=== PATIENT | female | born 1970 | race Caucasian/White ===

== ENCOUNTER → 2016-08-15 | Outpatient (CLI) | payer BC ==
--- NOTE | 2016-08-24 10:49 | MM ---
Reason for exam: screening (asymptomatic). Last mammogram was performed 2 years ago. Physical Findings: A clinical breast exam by your physician is recommended on an annual basis and results should be correlated with mammographic findings. MG Screening Mammo w CAD Bilateral CC and MLO view(s) were taken. Prior study comparison: August 18, 2014, mammogram, performed at [facility]. March 26, 2013, mammogram, performed at [facility]. The breast tissue is heterogeneously dense. This may lower the sensitivity of mammography. There is no discrete abnormality. No significant changes when compared with prior studies. ASSESSMENT: Negative, BI-RAD 1 RECOMMENDATION: Routine screening mammogram of both breasts in 1 year.
== END | disposition home or self-care (01) ==
LOC: RADMAMWWP 16:57
PROVIDERS: ATTEND Family Medicine
DX: Z12.31 Encounter for screening mammogram for malignant neoplasm of breast (principal)

== ENCOUNTER → 2018-08-15 | Outpatient (CLI) | payer BC ==
--- NOTE | 2018-08-16 10:01 | MM ---
Reason for exam: screening (asymptomatic). Last mammogram was performed 2 years ago. Physical Findings: A clinical breast exam by your physician is recommended on an annual basis and results should be correlated with mammographic findings. MG Screening Mammo w CAD Bilateral CC and MLO view(s) were taken. Prior study comparison: August 15, 2016, bilateral MG screening mammo w CAD. August 18, 2014, mammogram, performed at [facility]. The breast tissue is extremely dense which could obscure a lesion on mammography. Finding: There is a new 6 mm indistinct mass located 2 cm from the nipple. New finding since August 15, 2016 and August 18, 2014. ASSESSMENT: Incomplete: need additional imaging evaluation, BI-RAD 0 RECOMMENDATION: Special view mammogram of the left breast. If lesion persists on supplemental views, image directed ultrasound is recommended. [facility] will attempt to contact patient to return for supplemental views and ultrasound if indicated.
== END | disposition home or self-care (01) ==
LOC: RADMAMWWP 07:06
PROVIDERS: ATTEND Family Medicine
DX: Z12.31 Encounter for screening mammogram for malignant neoplasm of breast (principal)
CPT/HCPCS: 77067

== ENCOUNTER → 2018-08-29 | Outpatient (CLI) | payer BC ==
--- NOTE | 2018-08-29 10:37 | MM ---
Reason for exam: additional evaluation requested from abnormal screening. Last mammogram was performed less than 1 month ago. History: Took progesterone beginning at age 42. Physical Findings: Nurse Summary: 1cm nodule in the left breast at 5 o'clock (nurse kp). MG 3D Work Up W/Cad LT Spot compression CC and LM view(s) were taken of the left breast. Prior study comparison: August 15, 2018, bilateral MG screening mammo w CAD. August 15, 2016, bilateral MG screening mammo w CAD. The breast tissue is heterogeneously dense. This may lower the sensitivity of mammography. No distinct lesion persists. These results were verbally communicated with the patient and result sheet given to the patient on 08/29/18. ASSESSMENT: Incomplete: need additional imaging evaluation, BI-RAD 0 RECOMMENDATION: Ultrasound of the left breast. (palpable abnormality by nurse)
--- NOTE | 2018-08-29 10:39 | USB ---
Reason for exam: additional evaluation requested from abnormal screening. History: Took progesterone beginning at age 42. US Breast Workup Limited LT Left limited breast ultrasound including focal area of concern, retroareolar and axilla demonstrates no cystic or solid lesion seen. Palpable corresponds with an area of dense tissue. These results were verbally communicated with the patient and result sheet given to the patient on 08/29/18. ASSESSMENT: Benign, BI-RAD 2 RECOMMENDATION: Return to routine screening mammogram schedule for both breasts.
== END | disposition home or self-care (01) ==
LOC: RADMAMWWP 08:56
PROVIDERS: ATTEND Family Medicine
DX: R92.8 Other abnormal and inconclusive findings on diagnostic imaging of breast (principal)
CPT/HCPCS: 77061; 77065

== ENCOUNTER 2020-02-06 11:22 | Emergency (ER) | payer BC, OTHER ==
[2020-02-06 11:48] VITALS: BP 127/84; PULSE 94; RESP 16; TEMP 98.4
--- NOTE | 2020-02-06 12:34 | ED ---
General Adult HPI - General Chief complaint: Needlestick/Exposure Stated complaint: Needle stick Time Seen by Provider: 02/06/20 11:50 Source: patient, RN notes reviewed Mode of arrival: ambulatory Limitations: no limitations - History of Present Illness Initial comments: This a 49-year-old female presents emergency Department chief complaint of needlestick. 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 Patient states that she poked herself on doing tattooing. Patient states that she is up-to-date on her tetanus. Patient states that she believes the patient has no history of communicable diseases including hepatitis C and HIV. Patient denies any other complaints at this time. - Related Data Allergies Allergy/AdvReac Type Severity Reaction Status Date / Time NSAIDS (Non-Steroidal Allergy Rash/Hives Verified 02/06/20 11:45 Anti-Inflamma Review of Systems ROS Statement: Those systems with pertinent positive or pertinent negative responses have been documented in the HPI. ROS Other: All systems not noted in ROS Statement are negative. Past Medical History Past Medical History: Thyroid Disorder History of Any Multi-Drug Resistant Organisms: None Reported Past Surgical History: No Surgical Hx Reported Past Psychological History: No Psychological Hx Reported Smoking Status: Never smoker Past Alcohol Use History: None Reported Past Drug Use History: None Reported General Exam Limitations: no limitations General appearance: alert, in no apparent distress Head exam: Present: atraumatic, normocephalic, normal inspection Eye exam: Present: normal appearance, PERRL, EOMI. Absent: scleral icterus, conjunctival injection, periorbital swelling Respiratory exam: Present: normal lung sounds bilaterally. Absent: respiratory distress, wheezes, rales, rhonchi, stridor Cardiovascular Exam: Present: regular rate, normal rhythm, normal heart sounds. Absent: systolic murmur, diastolic murmur, rubs, gallop, clicks Extremities exam: Present: other (Puncture wound left hand) Skin exam: Present: warm, dry, intact, normal color. Absent: rash Course Vital Signs 02/06/20 11:46 Temperature 98.4 F Pulse Rate 94 Respiratory 16 Rate Blood Pressure 127/84 O2 Sat by Pulse 96 Oximetry Medical Decision Making - Medical Decision Making 49-year-old female presented for needlestick. Patient has a low risk for transmission. Patient's blood and subjective blood work drawn. Patient discharged in stable condition. Disposition Clinical Impression: Needle stick injury Disposition: HOME SELF-CARE Condition: Stable Instructions (If sedation given, give patient instructions): Needle Stick Injuries (ED) Additional Instructions: Please return to the Emergency Department if symptoms worsen or any other concerns. Is patient prescribed a controlled substance at d/c from ED?: No Referrals: Michael Arriola MD [Primary Care Provider] - 1-2 days Time of Disposition: 13:16
== END 2020-02-06 13:33 | disposition home or self-care (01) ==
LOC: EC 11:22
DX: S61.432A Puncture wound without foreign body of left hand, initial encounter (principal); Z88.6 Allergy status to analgesic agent; W46.1XXA Contact with contaminated hypodermic needle, initial encounter; Y92.69 Other specified industrial and construction area as the place of occurrence of the external cause; Y99.0 Civilian activity done for income or pay
CPT/HCPCS: 99283

== ENCOUNTER → 2020-06-11 | Outpatient (CLI) | payer BC ==
--- NOTE | 2020-06-15 10:42 | MM ---
Reason for exam: screening (asymptomatic). Last mammogram was performed 1 year and 9 months ago. History: Took progesterone beginning at age 42. Physical Findings: A clinical breast exam by your physician is recommended on an annual basis and results should be correlated with mammographic findings. MG 3D Screening Mammo W/Cad Bilateral CC and MLO view(s) were taken. Prior study comparison: August 15, 2018, bilateral MG screening mammo w CAD. August 15, 2016, bilateral MG screening mammo w CAD. The breast tissue is heterogeneously dense. This may lower the sensitivity of mammography. No significant changes when compared with prior studies. ASSESSMENT: Negative, BI-RAD 1 RECOMMENDATION: Routine screening mammogram of both breasts in 1 year. Patient should continue monthly self breast exams. A negative report should not preclude additional follow up of suspicious palpable abnormalities.
== END | disposition home or self-care (01) ==
LOC: RADMAMWWP 12:05
PROVIDERS: ATTEND Obstetrics & Gynecology
DX: Z12.31 Encounter for screening mammogram for malignant neoplasm of breast (principal); Z88.6 Allergy status to analgesic agent
CPT/HCPCS: 77063; 77067